=== PATIENT | male | born 1980 | race Caucasian/White ===

== ENCOUNTER 2017-07-16 15:09 | Emergency (ER) | payer MEDICAID ==
--- NOTE | 2017-07-16 15:16 | CPEKG ---
Heart Rate: 92 RR Interval: 652 P-R Interval: 132 QRSD Interval: 88 QT Interval: 376 QTC Interval: 466 P Kenvir: 55 QRS Kenvir: 53 T Wave Kenvir: 59 EKG Severity - ABNORMAL ECG - EKG Impression: SINUS TACHYCARDIA EKG Impression: MULTIFORM VENTRICULAR PREMATURE COMPLEXES EKG Impression: PROBABLE LEFT ATRIAL ABNORMALITY Electronically Signed By: Garry Pappas 16-Jul-2017 16:07:08
[2017-07-16 15:23] VITALS: RESP 16; TEMP 98.8
[2017-07-16] MEDS ORDERED: NS 1,000 ML IV ONE (15:24)
[2017-07-16] MEDS ORDERED: LORazepam 2 MG/ML INJ IVP ONE (15:27)
[2017-07-16 15:29] LABS: PLATELET COUNT 206 10^3/uL (150-400)
--- NOTE | 2017-07-16 16:06 | EDPHY ---
H & P Stated Complaint: Paresthesias Time Seen by Provider: 07/16/17 15:18 HPI/ROS: CHIEF COMPLAINT: Multiple complaints including chronic bilateral shoulder pain , chronic upper extremity paresthesias, anxiety HISTORY OF PRESENT ILLNESS: The patient presents to the ED by paramedics. [place] when he developed paresthesias in his left arm. The patient reported associated symptoms of anxiety. The patient has been struggling with chronic bilateral shoulder pain and bilateral upper extremity paresthesias for some time. The patient denies any chest pain or shortness of breath. The patient did feel that he was having pallor involving his left upper extremity prior to arrival. The patient denies taking any medications currently. The patient has no regular primary care provider. The patient denies any additional acute complaints aside from feeling mildly anxious. REVIEW OF SYSTEMS: A comprehensive 10 point review of systems is otherwise negative aside from elements mentioned in the history of present illness. Source: Patient Exam Limitations: No limitations - Personal History Current Tetanus/Diphtheria Vaccine: No Current Tetanus Diphtheria and Acellular Pertussis (TDAP): No - Medical/Surgical History Hx Asthma: No Hx Chronic Respiratory Disease: No Hx Diabetes: No Hx Cardiac Disease: No Hx Renal Disease: No Hx Cirrhosis: No Hx Alcoholism: No Hx HIV/AIDS: No Hx Splenectomy or Spleen Trauma: No Other PMH: Humeral head fx, radial head transplant - Social History Smoking Status: Current every day smoker - Physical Exam Exam: General Appearance: Alert, anxious, no acute distress Eyes: Pupils equal and round no pallor or injection ENT, Mouth: Mucous membranes moist Respiratory: There are no retractions, lungs are clear to auscultation Cardiovascular: Regular rate and rhythm Gastrointestinal: Abdomen is soft and nontender, no masses, bowel sounds normal Neurological: A&O, normal motor function, normal sensory exam, normal cranial nerves Skin: Warm and dry, no rashes Musculoskeletal: Neck is supple nontender Extremities: 2+ radial and ulnar pulses noted bilaterally Psychiatric: Patient is oriented X 3, there is no agitation Constitutional: Initial Vital Signs Temperature (C) 37.1 C 07/16/17 15:09 Heart Rate 79 07/16/17 15:09 Respiratory Rate 16 07/16/17 15:09 Blood Pressure 152/99 H 07/16/17 15:09 O2 Sat (%) 99 07/16/17 15:09 O2 Delivery Mode Room Air Allergies/Adverse Reactions: erythromycin base [Erythromycin Base] Allergy (Mild, Verified 11/12/09 14:25) Rash Home Medications: Medication Instructions Recorded Non-Formulary 11/12/09 LORazepam [Ativan] 1 mg PO TID PRN #10 tab 07/16/17 Medical Decision Making - Diagnostics EKG Interpretation: EKG: Complete interpretation has been separately recorded in the [email or web address] archive. Summary impression: Multiple PVCs, no ST segment elevation or depression Imaging Results: Imaging Impressions Chest X-Ray 07/16/17 16:51 Impression: Findings most consistent with airways disease are noted. ED Course/Re-evaluation: The patient presents to the ED after a likely anxiety attack. The patient has been struggling with some palpitations and intermittent paresthesias. The patient is noted to have occasional PVCs in the emergency department. The patient's chest x-ray, CBC, electrolytes and troponin are within normal limits. The patient did receive 1 mg of IV Ativan. The patient was observed in the emergency department for 3 hr. I evaluated the patient at 4:30 p.m. and 6:00 p.m.. The patient had no arrhythmia noted on his monitoring in the emergency department. He is feeling much better after Ativan. Regarding the patient's PVCs he will be advised to follow up with our on-call waiter/waitress informal. He is advised to return to the ED for any chest pain, shortness of breath or palpitations. The patient is requesting a short prescription of Ativan. Differential Diagnosis: Differential diagnosis considered includes PVCs, anxiety, SVT, pneumonia, vaso spasm - Data Points Laboratory Results: Laboratory Results 07/16/17 14:55 07/16/17 14:55 07/16/17 07/16/17 14:55 14:55 WBC 6.23 10^3/uL 10^3/uL (3.80-9.50) RBC 5.28 10^6/uL 10^6/uL (4.40-6.38) Hgb 17.8 g/dL H g/dL (13.7-17.5) Hct 48.2 % % (40.0-51.0) MCV 91.3 fL fL (81.5-99.8) MCH 33.7 pg pg (27.9-34.1) MCHC 36.9 g/dL H g/dL (32.4-36.7) RDW 12.4 % % (11.5-15.2) Plt Count 206 10^3/uL 10^3/uL (150-400) MPV 10.6 fL fL (8.7-11.7) Neut % (Auto) 44.8 % % (39.3-74.2) Lymph % (Auto) 46.9 % H % (15.0-45.0) [place] % (Auto) 6.6 % % (4.5-13.0) Eos % (Auto) 0.6 % % (0.6-7.6) Baso % (Auto) 0.6 % % (0.3-1.7) Nucleat RBC Rel Count 0.0 % % (0.0-0.2) Absolute Neuts (auto) 2.79 10^3/uL 10^3/uL (1.70-6.50) Absolute Lymphs (auto) 2.92 10^3/uL 10^3/uL (1.00-3.00) Absolute Monos (auto) 0.41 10^3/uL 10^3/uL (0.30-0.80) Absolute Eos (auto) 0.04 10^3/uL 10^3/uL (0.03-0.40) Absolute Basos (auto) 0.04 10^3/uL 10^3/uL (0.02-0.10) Absolute Nucleated RBC 0.00 10^3/uL 10^3/uL (0-0.01) Immature Gran % 0.5 % % (0.0-1.1) Immature Gran # 0.03 10^3/uL 10^3/uL (0.00-0.10) Sodium 143 mEq/L mEq/L (134-144) Potassium 5.0 mEq/L mEq/L (3.5-5.2) Chloride 108 mEq/L mEq/L (97-110) Carbon Dioxide 20 mEq/l L mEq/l (22-31) Anion Gap 15 mEq/L mEq/L (8-16) BUN 12 mg/dL mg/dL (7-23) Creatinine 0.9 mg/dL mg/dL (0.7-1.3) Estimated GFR > 60 Glucose 89 mg/dL mg/dL (70-100) Calcium 10.3 mg/dL mg/dL (8.5-10.4) Troponin I < 0.012 ng/mL ng/mL (0.000-0.034) TSH 2.790 uIU/mL uIU/mL (0.465-4.680) Medications Given: Discontinued Medications Sodium Chloride (Ns) 1,000 mls @ 0 mls/hr IV EDNOW ONE; Wide Open PRN Reason: Protocol Stop: 07/16/17 15:25 Last Admin: 07/16/17 15:33 Dose: 1,000 mls Lorazepam (Ativan Injection) 1 mg IVP EDNOW ONE Stop: 07/16/17 15:28 Last Admin: 07/16/17 15:34 Dose: 1 mg Departure - Departure Disposition: Home, Routine, Self-Care Clinical Impression: Palpitations, Paresthesias, PVC (premature ventricular contraction) Condition: Good Instructions: Premature Ventricular Contractions (ED) Additional Instructions: 1. Ativan as needed for anxiety. 2. Return to the ED for any recurrent symptoms, severe chest pain, difficulty breathing, numbness weakness or other concerns. 3. Please follow up with the waiter/waitress informal you have been referred to for further evaluation of your palpitations. Referrals: Ace Soto MD [Medical Doctor] - As per Instructions Stand Alone Forms: Work Excuse Prescriptions: LORazepam [Ativan] 1 mg PO TID PRN #10 tab PRN Reason: for anxiety
[2017-07-16 16:25] VITALS: O2SAT 98
[2017-07-16 17:51] VITALS: BP 145/76; PULSE 75
[2017-07-16] MEDS ORDERED: LORAZEPAM 1 MG PREPACK#4 BTL TAKEHOME ONE (19:06)
== END 2017-07-16 19:20 | disposition home or self-care (01) ==
LOC: EDUNIT#
DX: I49.3 Ventricular premature depolarization (principal); R20.2 Paresthesia of skin; F17.200 Nicotine dependence, unspecified, uncomplicated; E86.9 Volume depletion, unspecified
CPT/HCPCS: 96374; J2060

== ENCOUNTER 2018-05-30 16:48 | Inpatient (IN) | payer MEDICAID ==
[2018-05-30 18:03] LABS: PLATELET COUNT 191 10^3/uL (150-400)
[2018-05-30] MEDS ORDERED: VANCOMYCIN HCL/NORMAL SALINE 250 ML IV ONE (18:08)
[2018-05-30] MEDS ORDERED: ACETAMINOPHEN 500 MG TAB PO ONE (18:08)
--- NOTE | 2018-05-30 18:25 | EDPHY ---
H & P Stated Complaint: Groin swelling/back pain Time Seen by Provider: 05/30/18 17:10 HPI/ROS: Chief Complaint: Rash, groin pain HPI: 37-year-old male presenting with groin pain and rash which has worsening over the course the day today. No prior symptoms. No history of sexually transmitted infections in the past. No fevers or chills. He began having pain this morning and later this afternoon noticed increasing redness. It is warm to touch. Some subjective fevers. No nausea or vomiting. Denies any IV drug use. Does use marijuana and alcohol occasionally. No fevers or chills. ROS: 10 systems were reviewed and were negative except those elements noted in the HPI. PMH: Anxiety Social History: Positive smoking, occasional alcohol, occasional marijuana, no IV drug use Family History: non-contributory Physical Exam: Gen: Awake, Alert, No Distress HEENT: Nose: no rhinorrhea Eyes: PERRLA, EOMI Mouth: Moist mucosa Neck: Supple, no JVD Chest: nontender, lungs clear to auscultation Heart: S1, S2 normal, no murmur Abd: Soft, non-tender, no guarding Genital: Patient has erythematous rash in his groin which involves the upper thigh, lower pelvis, shaft of his penis and anterior portions of his scrotum. There is sparing of the perineum and the inguinal fold. It is warm to touch. It is very tender. There are no vesicles. Back: no CVA tenderness, no midline tenderness Ext: no edema, non-tender Skin: no rash Neuro: CN II-XII intact, Sensation grossly intact, Strength 5/5 in bilateral upper and lower extremities - Personal History Current Tetanus/Diphtheria Vaccine: Unsure - Medical/Surgical History Hx Asthma: No Hx Chronic Respiratory Disease: No Hx Diabetes: No Hx Cardiac Disease: No Hx Renal Disease: No Hx Cirrhosis: No Hx Alcoholism: No Hx HIV/AIDS: No Hx Splenectomy or Spleen Trauma: No Other PMH: Humeral head fx, radial head transplant, "heart arrthmyia" - Social History Smoking Status: Light smoker Constitutional: Initial Vital Signs Temperature (C) 36.8 C 05/30/18 16:51 Heart Rate 117 H 05/30/18 16:51 Respiratory Rate 18 05/30/18 16:51 Blood Pressure 137/103 H 05/30/18 16:51 O2 Sat (%) 97 05/30/18 16:51 O2 Delivery Mode Room Air Allergies/Adverse Reactions: erythromycin base [Erythromycin Base] Allergy (Mild, Verified 05/30/18 16:55) Rash Home Medications: Medication Instructions Recorded Non-Formulary 11/12/09 LORazepam [Ativan] 1 mg PO TID PRN #10 tab 07/16/17 Medical Decision Making ED Course/Re-evaluation: 37-year-old male with a rapidly developing cellulitis in his groin. Blood work is been sent. I have ordered IV vancomycin. Plan will be to admit for continued IV antibiotics and further evaluation. I do not see any evidence of Marck's gangrene at this time. There is perineal sparing. Discussed with hospitalist. They will admit for further care - Data Points Laboratory Results: Laboratory Results 05/30/18 17:35 05/30/18 17:35 05/30/18 05/30/18 17:35 17:35 WBC 10.18 10^3/uL H 10^3/uL (3.80-9.50) RBC 4.93 10^6/uL 10^6/uL (4.40-6.38) Hgb 16.0 g/dL g/dL (13.7-17.5) Hct 44.2 % % (40.0-51.0) MCV 89.7 fL fL (81.5-99.8) MCH 32.5 pg pg (27.9-34.1) MCHC 36.2 g/dL g/dL (32.4-36.7) RDW 12.4 % % (11.5-15.2) Plt Count 191 10^3/uL 10^3/uL (150-400) MPV 10.5 fL fL (8.7-11.7) Neut % (Auto) 63.7 % % (39.3-74.2) Lymph % (Auto) 27.1 % % (15.0-45.0) [place] % (Auto) 7.5 % % (4.5-13.0) Eos % (Auto) 0.9 % % (0.6-7.6) Baso % (Auto) 0.3 % % (0.3-1.7) Nucleat RBC Rel Count 0.0 % % (0.0-0.2) Absolute Neuts (auto) 6.49 10^3/uL 10^3/uL (1.70-6.50) Absolute Lymphs (auto) 2.76 10^3/uL 10^3/uL (1.00-3.00) Absolute Monos (auto) 0.76 10^3/uL 10^3/uL (0.30-0.80) Absolute Eos (auto) 0.09 10^3/uL 10^3/uL (0.03-0.40) Absolute Basos (auto) 0.03 10^3/uL 10^3/uL (0.02-0.10) Absolute Nucleated RBC 0.00 10^3/uL 10^3/uL (0-0.01) Immature Gran % 0.5 % % (0.0-1.1) Immature Gran # 0.05 10^3/uL 10^3/uL (0.00-0.10) Sodium 136 mEq/L mEq/L (135-145) Potassium 4.0 mEq/L mEq/L (3.3-5.0) Chloride 102 mEq/L mEq/L (97-110) Carbon Dioxide 20 mEq/l L mEq/l (22-31) Anion Gap 14 mEq/L mEq/L (6-14) BUN 16 mg/dL mg/dL (7-23) Creatinine 1.0 mg/dL mg/dL (0.7-1.3) Estimated GFR > 60 Glucose 78 mg/dL mg/dL (70-100) Calcium 9.9 mg/dL mg/dL (8.5-10.4) Total Bilirubin 1.2 mg/dL mg/dL (0.1-1.4) AST 31 IU/L IU/L (17-59) ALT 33 IU/L IU/L (21-72) Alkaline Phosphatase 58 IU/L IU/L (38-126) Total Protein 7.6 g/dL g/dL (6.3-8.2) Albumin 5.0 g/dL g/dL (3.5-5.0) Medications Given: Discontinued Medications Acetaminophen (Tylenol) 1,000 mg PO EDNOW ONE Stop: 05/30/18 18:09 Last Admin: 05/30/18 18:36 Dose: Not Given Departure - Departure Disposition: [facility] Acute Clinical Impression: Cellulitis Condition: Fair Referrals: Saran Peters MD [Primary Care Provider] - As per Instructions
[2018-05-30] MEDS ORDERED: ACETAMINOPHEN 325 MG TAB PO PRN (18:51)
[2018-05-30] MEDS ORDERED: ONDANSETRON 4 MG/2 ML VIAL IVP PRN (18:51)
[2018-05-30] MEDS ORDERED: IOPAMIDOL (ISOVUE-300) 100 ML BTL ONE (19:03)
[2018-05-30] MEDS ORDERED: LORazepam 1 MG TAB PO ONE (19:28)
[2018-05-30] MEDS ORDERED: LORazepam 1 MG TAB ONE (19:28)
--- NOTE | 2018-05-30 19:28 | GHP ---
DATE OF ADMISSION: 05/30/2018 CHIEF COMPLAINT: Groin pain. HISTORY OF PRESENT ILLNESS: This is a 37-year-old male, with past medical history of anxiety who pre sented to the emergency department today with a rash and groin pain that has been worsening over the past day. He 1st noticed some chills over the weekend and had some mild groin pain but this has been worsening over the past couple days. He denies any previous skin infections. He denies any fevers. He denies any IV drug use. He uses marijuana occasionally. PAST MEDICAL HISTORY: Anxiety. HOME MEDICATIONS: Reviewed. Refer to [employer] for details. ALLERGIES: Erythromycin causes a rash. 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 He denies any illicit drug use. He drinks alcohol and smokes marijuana occasionally. FAMILY HISTORY: Reviewed and noncontributory. REVIEW OF SYSTEMS: Comprehensive 10-point review of systems was done and is negative, except for as mentioned in the HPI. PHYSICAL EXAM: VITAL SIGNS: Blood pressure 137/103, heart rate 117, respiratory rate 18, O2 saturat ion 97% on room air. Temperature 36.8. GENERAL: No acute distress. Anxious. HEAD: Normocephalic , atraumatic. EYES: PERRLA. Sclerae anicteric. MOUTH: Moist mucous membranes. NECK: Supple. N o lymphadenopathy. CARDIOVASCULAR: Tachycardic S1, S2. No JVD. No lower extremity edema. PULMONA RY: Lungs are clear. No wheezes, rales, or rhonchi. ABDOMEN: Soft, but significantly tender over the left groin inguinal canal. EXTREMITIES: No clubbing or cyanosis. NEURO: Cranial nerves 2-12 g rossly intact. No focal motor or sensory deficits. SKIN: There is erythema over the penis and anter ior scrotum radiating up to his thigh and lower abdomen. The area over the inguinal canal is very te nder. There is no induration or fluctuance. There is no discharge. Skin is intact. DIAGNOSTICS: WBC is 10.18, hemoglobin 16, hematocrit 44.2, platelets 191, sodium 136, potassium 4, c hloride 102, BUN 16, creatinine 1, glucose 78. LFTs unremarkable. GC and Chlamydia are pending. ASSESSMENT/PLAN: 1. A 37-year-old male, presenting with redness and pain over his scrotum and groin, most consistent with a cellulitis. Plan: The patient received a dose of vancomycin in the emergency department. I w ill discontinue Vancomycin and switch to cefazolin 2 g IV q.8. The patient will need to be closely m onitored for signs and symptoms of sepsis or necrotizing skin and soft tissue infection such as necro tizing fasciitis. Will obtain a CT of the abdomen and pelvis to further evaluate the soft tissues an d also to evaluate for possible incarcerated hernia. 2. History of generalized anxiety. Plan: We will order p.r.n. Ativan since the patient does appear to be quite anxious. The patient requests to be full code status. /[id number]/MODL
[2018-05-30] MEDS: ceFAZolin 2 GM/DEXTROSE 100 ML IV SCH (23:22)
[2018-05-31] MEDS: LORazepam 1 MG TAB PO PRN ×2 (04:39→14:48)
[2018-05-31 05:44] LABS: PLATELET COUNT 158 10^3/uL (150-400)
[2018-05-31] MEDS: ceFAZolin 2 GM/DEXTROSE 100 ML IV SCH ×3 (06:03→20:59)
--- NOTE | 2018-05-31 10:04 | ASMTCMCOM ---
CM Note CM Note Notes: Pts case discussed w/ RONNIE Barillas regarding d/c POC. Pt is a 37 y/o man admitted for cellulitis in the groin area. Pt is currently on ivabx. Pt is starting a new job and is anxious about missing his first day. Needs are TBD at this time. No therapies ordered. CM to follow. Plan: TBD Date Signed: 05/31/2018 10:03 AM Electronically Signed By:BHAVIN Montes
[2018-05-31 11:49] LABS: GC AMPLIFICATION GENPROBE NEGATIVE (NEGATIVE)
--- NOTE | 2018-05-31 14:19 | HOSPPROG ---
Hospitalist Progress Note Assessment/Plan: 37yo generally healty M here with left inguinal rash and pain c/w cellulitis. #Left inguinal/scrotal cellulitis: Improving. Likely Strep. CT neg for deep infection/drainable abscess. No involvement of perineum. - Cont cefazolin 2g IV q8h - Follow blood cultures, fever curve, rash - GC chlamydia negative #Anxiety - Ativan prn VTE ppx: SCDs Dispo: Switch to inpatient for ongoing IV antibiotics. Hopefully home tomorrow with PO antibiotics. Subjective: Overall better. No more back/neck pain. No fevers. Rash improving. Objective: Vital Signs Temp Pulse Resp BP Pulse Ox 36.7 C 67 16 119/72 96 05/31/18 12:00 05/31/18 12:00 05/31/18 12:00 05/31/18 12:00 05/31/18 12:00 Laboratory Results 05/31/18 04:18 05/31/18 04:18 - Physical Exam Constitutional: no apparent distress, appears nourished, not in pain Eyes: PERRL, anicteric sclera, EOMI Ears, Nose, Mouth, Throat: moist mucous membranes, hearing normal, ears appear normal, no oral mucosal ulcers Cardiovascular: regular rate and rhythym, no murmur, rub, or gallop Respiratory: no respiratory distress, no rales or rhonchi, clear to auscultation Gastrointestinal: normoactive bowel sounds, soft, non-tender abdomen, no palpable masses Genitourinary: other (mild left scrotal erythema, no perineum involvement) Skin: erythema (left inguinal region) Musculoskeletal: full muscle strength, no muscle tenderness, normal joint ROM Neurologic: AAOx3, sensation intact bilaterally Psychiatric: interacting appropriately, not anxious, not encephalopathic, thought process linear Lymph, Heme, Immunologic: lymphadenopathy (left inguinal nodes) ICD10 Worksheet Patient Problems: Problems Problem Status Onset Cellulitis Acute
--- NOTE | 2018-05-31 14:54 | PDMN ---
Medical Necessity Medical necessity: Changed to IP as of 05/31/2018 per and [facility] CG-GDC (General Discharge Criteria); los >2 mn for ongoing IV ABX for cellulitis of the groin. Cultures pending.
[2018-05-31] MEDS: IBUPROFEN 200 MG TAB PO PRN ×2 (15:20→20:57)
[2018-05-31] MEDS ORDERED: LORazepam 1 MG TAB PO ONE (21:00)
[2018-06-01] MEDS: LORazepam 1 MG TAB PO PRN ×2 (03:47→13:32)
[2018-06-01] MEDS: IBUPROFEN 200 MG TAB PO PRN ×2 (03:47→11:15)
[2018-06-01] MEDS: ceFAZolin 2 GM/DEXTROSE 100 ML IV SCH ×2 (05:42→13:32)
[2018-06-01 07:22] VITALS: BP 112/67
--- NOTE | 2018-06-01 08:49 | PDDCSUM ---
Discharge Summary Discharge Summary: DISCHARGE DIAGNOSES: * scrotal cellulitis without evidence of abscess, orchiitis, or gangrene * chronic anxiety disorder PROCEDURES: CT scan abdomen pelvis with contrast showing evidence of cellulitis with associated adenopathy HOSPITAL COURSE SUMMARY: This patient presented to the hospital with the chills sweats and scrotal pain and swelling. There is no fever but he does have a scrotal and inguinal cellulitis left greater than right. Examination did not show any evidence of abscess or gangrene or skin breakdown and there was no evidence of orchitis. He has a CT scan that shows no concerning abnormalities other than cellulitis. There is no history of concerning sexual contacts or travel. He has negative chlamydia and GC results. The patient has responded very nicely to Ancef with at this point nearly complete resolution of the cellulitis. He is felt stable for discharge home, will need ongoing oral antibiotics with Keflex 500 mg 4 times daily for 7 more days. PENDING TEST RESULTS: Blood cultures are still pending with no growth to date MEDICATION CHANGES: Keflex 500 mg four times daily for 7 days is added otherwise continue usual home meds FOLLOW-UP PLAN: With Dr. Peters in the next few days Greater than 35 minutes bedside and care coordination time today
--- NOTE | 2018-06-01 11:01 | ASDISCHSUM ---
Discharge Information Plan Status:Home with No Needs Medically Cleared to Leave: Discharge Date: CM D/C Disposition:Home, Routine, Self-Care ADT D/C Disposition:Home, Routine, Self-Care Projected Discharge Date: Transportation at D/C:Family Discharge Delay Reason: Follow-Up Date: Discharge Slot: Final Diagnosis: Placement Information Patient Contact Information Contact Name:MICHI Relationship:Mother Address:[address] Work Phone: City:[place] Alternate Phone: State/Zip Code:[place] [address] Email: Financial Information Financial Class:Medicaid Primary Plan Desc:[employer] Primary Plan Number:[id number] Secondary Plan Desc: Secondary Plan Number: Assessment Information LACE LACE Length of stay for Answers: Less than 1 day current admission Acuity / Level of Answers: Yes Care: Did the patient have an inpatient admission? Comorbidities - select Answers: Opioid dependence all that apply / Chronic pain # of Emergency department Answers: 1-2 visits in the last 6 months Social determinants Answers: Mental health diagnosis (anxiety, depression, pers onality disorders, etc.) Score: 11 Date Signed: 06/01/2018 11:00 AM Electronically Signed By:Laura Song [facility] Progress Note CM Note CM Note Notes: Pts case discussed w/ RONNIE Barillas regarding d/c POC. Pt is a 37 y/o man admitted for cellulitis in the groin area. Pt is currently on ivabx. Pt is starting a new job and is anxious about missing his first day. Needs are TBD at this time. No therapies ordered. CM to follow. Plan: TBD Date Signed: 05/31/2018 10:03 AM Electronically Signed By:BHAVIN Montes Intervention Information
== END 2018-06-01 16:43 | disposition home or self-care (01) | DRG 501 ==
LOC: F3E 20:11 → OBSVTOIN 05-31 14:19
PROVIDERS: ADMIT Family Medicine; ATTEND Family Medicine
DX: N49.2 Inflammatory disorders of scrotum (principal); F41.9 Anxiety disorder, unspecified; Z72.0 Tobacco use
CPT/HCPCS: G0378; J0690; J3370; Q9967

== ENCOUNTER 2018-06-04 00:33 | Emergency (ER) | payer MEDICAID ==
--- NOTE | 2018-06-04 00:58 | EDPHY ---
H & P Stated Complaint: just released for cellulitis thurs, pain and spasms in different spots now Source: Patient, Old records Exam Limitations: No limitations - Personal History Current Tetanus/Diphtheria Vaccine: Unsure - Medical/Surgical History Hx Asthma: No Hx Chronic Respiratory Disease: No Hx Diabetes: No Hx Cardiac Disease: No Hx Renal Disease: No Hx Cirrhosis: No Hx Alcoholism: No Hx HIV/AIDS: No Hx Splenectomy or Spleen Trauma: No Other PMH: Humeral head fx, radial head transplant, "heart arrthmyia" , retransplanted left arm nerves, cellulitis left leg/groin 05/2018 - Social History Smoking Status: Light smoker Time Seen by Provider: 06/04/18 00:56 HPI/ROS: HPI: This is a 37-year-old male who presents with Chief Complaint: just released for cellulitis thurs, pain and spasms in different spots now Location: Quality: Urinary hesitancy, frequency Duration: Starting today Signs and Symptoms: no fever, no nausea, no vomiting, no hematemesis, no blood in stool, no abdominal bloating, no diarrhea, no back pain, no testicular/groin pain, no indigestion, no chest pain, no shortness of breath Timing: Acute, intermittent Severity: Moderate Context: Patient presents with complaints sudden onset of urinary hesitancy and frequency that started this afternoon. He also complains of "numbness and tingling in his perineum and left groin area. He reports that the redness has improved. He is compliant with his Keflex. Chart review shows that patient was admitted on 05/30/[address] scan showing no abscess. He initially was started on IV Ancef and discharged on Keflex. Chart review shows negative gonorrhea and chlamydia. Modifying Factors: Keflex and Ativan Comment: ROS: A comprehensive 10 system review of systems is otherwise negative aside from elements mentioned in the history of present illness. MEDICAL/SURGICAL/SOCIAL HISTORY: Medical/surgical history: Humeral head fx, radial head transplant, "heart arrhythmia" retransplanted left arm nerves, cellulitis left leg/groin 05/2018 Social history: Light smoker. Marijuana user. Works as cook at [employer]. Family history noncontributory. CONSTITUTIONAL: Anxious, extremely well-appearing, adult white male awake and alert, no obvious distress HEENT: Atraumatic and normocephalic, PERRL, EOMI. Nares patent; no rhinorrhea; no nasal mucosal edema. Tympanic membranes clear. Oropharynx clear, no exudate and moist pink mucosa. Airway patent. No lymphadenopathy. No meningismus. Cardiovascular: Normal S1/S2, regular rate, regular rhythm, without murmur rub or gallop. PULMONARY/CHEST: Symmetrical and nontender. Clear to auscultation bilaterally. Good air movement. No accessory muscle usage. ABDOMEN: Soft, nondistended, nontender, no rebound, no guarding, no peritoneal signs, no masses or organomegaly. No CVAT. Male : No erythema/warmth/satellite lesions. circumcised penis, bilateral descended testes, no testicular swelling, no testicular masses, no penile discharge, no lesions, negative Prehn's sign. EXTREMITIES: 2/2 pulses, strength 5/5, no deformities, no clubbing, no cyanosis or edema. NEUROLOGICAL: no focal neuro deficits. GCS 15. SKIN: Warm and dry, no erythema. no rash. Good capillary refill. (Salome Galeano) Constitutional: Initial Vital Signs Temperature (C) 36.8 C 06/04/18 00:39 Heart Rate 96 06/04/18 00:39 Respiratory Rate 18 06/04/18 00:39 Blood Pressure 133/94 H 06/04/18 00:39 O2 Sat (%) 97 06/04/18 00:39 O2 Delivery Mode Room Air Allergies/Adverse Reactions: erythromycin base [Erythromycin Base] Allergy (Mild, Verified 06/04/18 00:46) Rash Home Medications: Medication Instructions Recorded Herbals/Supplements -Info Only 1 ea PO DAILY 05/30/18 Ibuprofen [Motrin (*)] 200 - 600 mg PO Q6H PRN 05/30/18 LORazepam [Ativan (*)] 0.5 - 1 mg PO TID PRN 05/30/18 Cephalexin [Keflex (*)] 500 mg PO Q6H #28 cap 06/01/18 Medical Decision Making ED Course/Re-evaluation: ED PA DICTATION I evaluated and participated in the management of the patient. I also evaluated the patient independently. My co-signature indicates that I have reviewed this chart and I agree with the findings and plan of care as documented. My personal H&P findings include: I reviewed the patient's labs with him that were all unremarkable. He was given a dose of Toradol for his symptoms. I am not concerned about any worsening cellulitis or abscess. He will be discharged home. (Solange Walton) Vital signs reviewed and stable upon arrival. No systemic signs. Cellulitis is completely resolved. IV access and laboratory studies along with urinalysis obtained. Given 1 liter NS, IV Ativan 1 mg upon arrival as I suspect there is an anxiety component. No signs of Marck's gangrene/sepsis/abscess/cellulitis 0135: Notified by RN that patient has told him that he took a oral Ativan prior to arrival and that he is having moderate relief of symptoms. Politely declined IV Ativan at this time. 0200: End of Shift. Signed over to Dr. Walton pending results and final disposition. Suspect will be discharged home. This patient was seen under the supervision of my secondary supervising physician. I evaluated care for this patient independently. Discussed this patient with Dr. Walton. (Salome Galeano) Differential Diagnosis: Differential diagnosis includes but is not limited to cellulitis, urinary tract infection, paresthesias. (Salome Galeano) - Data Points Laboratory Results: Laboratory Results 06/04/18 01:30 06/04/18 01:30 Medications Given: Discontinued Medications Sodium Chloride (Ns) 1,000 mls @ 0 mls/hr IV ONCE ONE; Wide Open PRN Reason: Protocol Stop: 06/04/18 01:04 Last Admin: 06/04/18 01:38 Dose: 1,000 mls Ketorolac Tromethamine (Toradol) 15 mg IVP EDNOW ONE Stop: 06/04/18 03:39 Last Admin: 06/04/18 03:39 Dose: 15 mg Ondansetron HCl (Zofran) 4 mg IVP EDNOW ONE Stop: 06/04/18 01:04 Last Admin: 06/04/18 01:38 Dose: 4 mg Departure - Departure Disposition: Home, Routine, Self-Care Clinical Impression: History of cellulitis Condition: Good Instructions: Cellulitis (ED) Additional Instructions: Continue to take Keflex as directed. Do not skip a dose. Follow-up appointment as directed. Referrals: Saran Peters MD [Primary Care Provider] - As per Instructions
[2018-06-04] MEDS ORDERED: ONDANSETRON 4 MG/2 ML VIAL IVP ONE (01:03)
[2018-06-04] MEDS ORDERED: NS 1,000 ML IV ONE ×2 (01:03→01:33)
[2018-06-04] MEDS ORDERED: LORazepam 2 MG/ML INJ IVP ONE (01:03)
[2018-06-04 02:04] LABS: PLATELET COUNT 179 10^3/uL (150-400)
[2018-06-04] MEDS ORDERED: KETOROLAC 15 MG/1 ML SDV IVP ONE (03:38)
[2018-06-04 03:59] VITALS: BP 127/72
== END 2018-06-04 04:00 | disposition home or self-care (01) ==
DX: R39.11 Hesitancy of micturition (principal); R35.0 Frequency of micturition; F12.90 Cannabis use, unspecified, uncomplicated; Z72.0 Tobacco use
CPT/HCPCS: 96374; J1885; J2405

== ENCOUNTER 2018-11-21 17:21 | Emergency (ER) | payer MEDICAID ==
[2018-11-21] MEDS ORDERED: MAG HYDROX/AL HYDROX/SIMETH 30 ML UDCUP PO ONE (17:38)
[2018-11-21] MEDS ORDERED: LIDOCAINE 2% VISCOUS 15 ML UDCUP PO ONE (17:38)
[2018-11-21] MEDS ORDERED: ONDANSETRON 4 MG/2 ML VIAL ONE (17:49)
[2018-11-21] MEDS ORDERED: ONDANSETRON 4 MG/2 ML VIAL IVP ONE (17:50)
--- NOTE | 2018-11-21 17:56 | EDPHY ---
H & P Stated Complaint: c/o diarrhea x 2 wks, n/v/d today with intermittent palpitations Time Seen by Provider: 11/21/18 17:25 HPI/ROS: Chief Complaint: Nausea, vomiting, diarrhea, shortness of breath HPI: 37-year-old male presenting complaining of shortness of breath after an episode of vomiting. Patient states he has been having some nausea and vomiting with some loose stools for the last week. Patient states this afternoon after vomiting he developed the hiccups. He felt he is unable to catch his breath with a head cups and felt short of breath. He called 911. He feels much better after being transferred to the hospital. Patient states he feels that his stomach has not really recovered after taking Keflex for cellulitis in May. He has followed up with primary care physician in had normal testing done. He has not had persistent profuse foul-smelling diarrhea. He he does drink alcohol smoke cigarettes but has been avoiding these for the past week. No weight loss or weight gain. No fevers or chills. No cough. Is complaining of some moderate nausea now. No blood in his stool. No blood in his emesis. No dark black tarry stools. ROS: 10 systems were reviewed and were negative except those elements noted in the HPI. PMH: Cellulitis Social History: No smoking, no alcohol, no recreational drug use Family History: non-contributory Physical Exam: Gen: Awake, Alert, No Distress HEENT: Nose: no rhinorrhea Eyes: PERRLA, EOMI Mouth: Moist mucosa Neck: Supple, no JVD Chest: nontender, lungs clear to auscultation Heart: S1, S2 normal, no murmur Abd: Soft, non-tender, no guarding Back: no CVA tenderness, no midline tenderness Ext: no edema, non-tender Skin: no rash Neuro: CN II-XII intact, Sensation grossly intact, Strength 5/5 in bilateral upper and lower extremities - Medical/Surgical History Hx Asthma: No Hx Chronic Respiratory Disease: No Hx Diabetes: No Hx Cardiac Disease: No Hx Renal Disease: No Hx Cirrhosis: No Hx Alcoholism: No Hx HIV/AIDS: No Hx Splenectomy or Spleen Trauma: No Other PMH: anxiety, Humeral head fx, radial head transplant, "heart arrthmyia" , retransplanted left arm nerves, cellulitis left leg/groin 05/2018 - Social History Smoking Status: Light smoker Constitutional: Initial Vital Signs Temperature (C) 36.9 C 11/21/18 17:28 Heart Rate 91 11/21/18 17:28 Respiratory Rate 16 11/21/18 17:28 Blood Pressure 148/84 H 11/21/18 17:28 O2 Sat (%) 97 11/21/18 17:28 O2 Delivery Mode Room Air Allergies/Adverse Reactions: erythromycin base [Erythromycin Base] Allergy (Mild, Verified 11/21/18 17:32) Rash cephalexin [From Keflex] Adverse Reaction (Verified 11/21/18 17:32) Home Medications: Medication Instructions Recorded Herbals/Supplements -Info Only 1 ea PO DAILY 05/30/18 Ibuprofen [Motrin (*)] 200 - 600 mg PO Q6H PRN 05/30/18 LORazepam [Ativan (*)] 0.5 - 1 mg PO TID PRN 05/30/18 Cephalexin [Keflex (*)] 500 mg PO Q6H #28 cap 06/01/18 Medical Decision Making ED Course/Re-evaluation: 37-year-old male presenting with shortness of breath after an episode of nausea vomiting. Patient has frequent episodes of vomiting. He has a hip which will cannabis user. I believe his symptoms are consistent with cannabinoid hyperemesis. He is improved after Haldol and IV fluids. His abdomen is soft benign. Laboratory evaluations are unremarkable. Not see any evidence of acute infectious or surgical process. Patient will be discharged with follow up with primary care physician, return for any concerns. - Data Points Laboratory Results: Laboratory Results 11/21/18 18:11 11/21/18 18:11 11/21/18 11/21/18 18:11 18:11 WBC 10.21 10^3/uL H 10^3/uL (3.80-9.50) RBC 5.98 10^6/uL 10^6/uL (4.40-6.38) Hgb 19.9 g/dL H g/dL (13.7-17.5) Hct 53.3 % H % (40.0-51.0) MCV 89.1 fL fL (81.5-99.8) MCH 33.3 pg pg (27.9-34.1) MCHC 37.3 g/dL H g/dL (32.4-36.7) RDW 12.3 % % (11.5-15.2) Plt Count 192 10^3/uL 10^3/uL (150-400) MPV 11.9 fL H fL (8.7-11.7) Neut % (Auto) 76.2 % H % (39.3-74.2) Lymph % (Auto) 16.3 % % (15.0-45.0) Mitchell % (Auto) 6.1 % % (4.5-13.0) Eos % (Auto) 0.4 % L % (0.6-7.6) Baso % (Auto) 0.2 % L % (0.3-1.7) Nucleat RBC Rel Count 0.0 % % (0.0-0.2) Absolute Neuts (auto) 7.79 10^3/uL H 10^3/uL (1.70-6.50) Absolute Lymphs (auto) 1.66 10^3/uL 10^3/uL (1.00-3.00) Absolute Monos (auto) 0.62 10^3/uL 10^3/uL (0.30-0.80) Absolute Eos (auto) 0.04 10^3/uL 10^3/uL (0.03-0.40) Absolute Basos (auto) 0.02 10^3/uL 10^3/uL (0.02-0.10) Absolute Nucleated RBC 0.00 10^3/uL 10^3/uL (0-0.01) Immature Gran % 0.8 % % (0.0-1.1) Immature Gran # 0.08 10^3/uL 10^3/uL (0.00-0.10) Sodium 137 mEq/L mEq/L (135-145) Potassium 3.7 mEq/L mEq/L (3.5-5.2) Chloride 106 mEq/L mEq/L (97-110) Carbon Dioxide 18 mEq/l L mEq/l (22-31) Anion Gap 13 mEq/L mEq/L (6-14) BUN 11 mg/dL mg/dL (7-23) Creatinine 0.9 mg/dL mg/dL (0.7-1.3) Estimated GFR > 60 Glucose 98 mg/dL mg/dL (70-100) Calcium 10.2 mg/dL mg/dL (8.5-10.4) Medications Given: Discontinued Medications Al Hydroxide/Mg Hydroxide (Maalox Susp) 30 ml PO ONCE ONE Stop: 11/21/18 17:39 Last Admin: 11/21/18 17:52 Dose: 30 ml Haloperidol Lactate (Haldol Injection) 2.5 mg IVP EDNOW ONE Stop: 11/21/18 18:15 Last Admin: 11/21/18 18:37 Dose: Not Given Lidocaine (Lidocaine 2% Viscous) 15 ml PO ONCE ONE Stop: 11/21/18 17:39 Last Admin: 11/21/18 17:51 Dose: 15 ml Ondansetron HCl (Zofran) 4 mg IVP EDNOW ONE Stop: 11/21/18 17:51 Last Admin: 11/21/18 17:51 Dose: 4 mg Departure - Departure Disposition: Home, Routine, Self-Care Clinical Impression: Vomiting Condition: Good Instructions: Acute Nausea and Vomiting (ED), Dyspnea (ED) Additional Instructions: Follow up with your primary care physician in 2-3 days for further evaluation. Referrals: Saran Peters MD [Primary Care Provider] - As per Instructions
[2018-11-21] MEDS ORDERED: HALOPERIDOL LACT 5 MG/ML INJ IVP ONE (18:14)
[2018-11-21 19:25] LABS: PLATELET COUNT 192 10^3/uL (150-400)
[2018-11-21 20:43] VITALS: BP 125/78
== END 2018-11-21 20:51 | disposition home or self-care (01) ==
LOC: EDUNIT#
DX: R11.2 Nausea with vomiting, unspecified (principal); R06.00 Dyspnea, unspecified
CPT/HCPCS: 96374; J2405